=== PATIENT | female | born 1990 | race Hispanic/Latino ===

== ENCOUNTER 2018-06-02 14:33 | Outpatient (CLI) | payer OTHER ==
--- NOTE | 2018-06-03 09:22 | MRI ---
LEFT KNEE MRI WITHOUT IV CONTRAST: HISTORY: M23.92, internal derangement left knee. Injured left knee 2 weeks ago while skiing. Multiplanar, multisequence MRI examination of the left knee is performed. A small amount of joint fl uid. There is evidence for a nondisplaced fracture through the lateral talar dome with slight depres sommer. There is also evidence for bone contusion involving the medial intercondylar eminence region. There is some minimal fluid density and some edematous changes in the region of the posterolateral c orner. There are also some mild intramuscular edematous changes in the lateral gastrocnemius, poplit eus, and lateral soleus muscles, evidence for mild intramuscular strain. The anterior and posterior cruciate ligaments, medial and lateral menisci, and medial and lateral collateral ligament complexes appear intact. Quadriceps and patellar tendons and extensor mechanism are unremarkable. IMPRESSION: Very mildly depressed lateral tibial plateau fracture with some focal contusion of the medial interco ndylar eminence region. Minimal edematous changes in the posterolateral corner, possibly mild inspector shells olateral corner sprain but with intact lateral collateral ligament complex. Minimal intramuscular co ntusion or strain. No evidence for other significant internal derangement. POS: [facility]
== END 2018-06-02 14:34 | disposition home or self-care (01) ==
LOC: TBSIIMAG 14:33
PROVIDERS: ATTEND Orthopaedic Surgery
DX: M23.92 Unspecified internal derangement of left knee (principal); S82.142A Displaced bicondylar fracture of left tibia, initial encounter for closed fracture